=== PATIENT | female | born 1995 | race Caucasian/White ===

== ENCOUNTER 2020-04-02 13:50 | Emergency (ER) | payer OTHER, SELFPAY ==
[~2020-04-02] VITALS: Ht 165.1 cm; Wt 86.2 kg
[2020-04-02 13:53] VITALS: BP 106/73; Ht 165.1 cm; Wt 86.2 kg
== END 2020-04-02 14:39 | disposition home or self-care (01) ==
LOC: ED 13:50
DX: U07.1 COVID-19 (principal); B34.9 Viral infection, unspecified; F17.210 Nicotine dependence, cigarettes, uncomplicated
CPT/HCPCS: U0003-CS